=== PATIENT | female | born 1980 | race Caucasian/White ===

== ENCOUNTER → 2016-12-06 | Day surgery (SDC) | payer BC ==
[~2016-12-06] VITALS: Ht 175.3 cm; Wt 88.0 kg
[~2016-12-06] MED LIST: CALC8.5C PO; CETI10TA84 PO; CLC100 PO; CLR10 PO; FOLIC ACID IV SCH; FRRS300 PO; MULTI VITAMIN INFUSION IV SCH; NORETAB25 MT; ONDANSETRON INJ 2 MG/ML 2 ML VIAL IV PRN; ONDANSETRON INJ 2 MG/ML 2 ML VIAL ONE; PRENTAB26 PO; PYRI50TA77 PO; THIAMINE HCL IV SCH; [UNRECOGNIZED DRUG - OTHER] IV SCH
[2016-12-06 11:36] VITALS: BP 127/83; PULSE 94; TEMP 36.4; O2SAT 99; Ht 175.3 cm; Wt 88.0 kg
[2016-12-06 14:00] VITALS: BP 103/69; PULSE 79; TEMP 36.8; O2SAT 99
== END | disposition home or self-care (01) ==
LOC: C.MTU 11:30
PROVIDERS: ATTEND Obstetrics & Gynecology
DX: O21.0 Mild hyperemesis gravidarum (principal); Z79.899 Other long term (current) drug therapy

== ENCOUNTER 2017-08-05 12:45 | Emergency (ER) | payer BC, OTHER ==
[~2017-08-05] VITALS: Ht 175.3 cm; Wt 91.0 kg
[~2017-08-05 12:45] MED LIST changes: -CALC8.5C PO; -CETI10TA84 PO; -CLC100 PO; -FOLIC ACID IV SCH; -FRRS300 PO; -MULTI VITAMIN INFUSION IV SCH; -NORETAB25 MT; -ONDANSETRON INJ 2 MG/ML 2 ML VIAL IV PRN; -ONDANSETRON INJ 2 MG/ML 2 ML VIAL ONE; -PYRI50TA77 PO; -THIAMINE HCL IV SCH; -[UNRECOGNIZED DRUG - OTHER] IV SCH
[2017-08-05 12:53] VITALS: TEMP 37.2; Ht 175.3 cm; Wt 91.0 kg
[2017-08-05] MEDS ORDERED: MoRPHine SULFATE 10 MG/ML CARP/VIAL IV STA (13:06)
[2017-08-05] MEDS ORDERED: ONDANSETRON INJ 2 MG/ML 2 ML VIAL IV STA (13:06)
[2017-08-05] MEDS ORDERED: OPTIRAY 320 IV PRN (13:30)
[2017-08-05 13:33] LABS: BASO % 0.2 %; BASO ABS # 0.03 K/uL (0-0.2); EOS % 0.2 %; EOS ABS # 0.03 K/uL (0-0.5); HEMOGLOBIN 14.5 g/dL (12.0-16.0); IG# 0.04 K/uL (0.00-0.02); LYMPH % 12.5 %; LYMPH ABS # 1.67 K/uL (1.2-3.4); MEAN CELL VOLUME 86.2 fL (80-100); MEAN CORPUSCULAR HEMOGLOBIN 29.8 pg (25-34); MEAN CORPUSCULAR HGB CONC 34.5 g/dl (32-36); MEAN PLATELET VOLUME 9.3 fL (7.4-10.4); MONO % 9.1 %; MONO ABS # 1.21 K/uL (0.11-0.59); NEUT % 77.7 %; NEUT ABS # 10.39 K/uL (1.4-6.5); PLATELET COUNT 300 K/uL (130-400); RED CELL DISTRIBUTION WIDTH CV 13.2 % (11.5-14.5); RED CELL DISTRIBUTION WIDTH SD 41.8 fL (36.4-46.3); WHITE BLOOD COUNT 13.37 K/uL (4.8-10.8)
[2017-08-05 13:51] LABS: ALBUMIN 4.1 gm/dl (3.4-5.0); CALCIUM 9.4 mg/dl (8.5-10.1); CREATININE 1.15 mg/dl (0.60-1.20); POTASSIUM 3.9 mmol/L (3.5-5.1)
[2017-08-05 13:54] LABS: TOTAL PROTEIN 7.8 gm/dl (6.4-8.2)
[2017-08-05] MEDS ORDERED: IBUP-1050 PO (14:03)
[2017-08-05] MEDS ORDERED: BCPILLS PO (14:03)
[2017-08-05] MEDS ORDERED: ACET-1256 PO (14:03)
--- NOTE | 2017-08-05 16:19 | DIAGNOSTIC IMAGING REPORT ---
ABDOMEN AND PELVIS CT WITH IV AND ORAL CONTRAST CT DOSE: 912.69 mGycm HISTORY: Acute left lower quadrant abdominal pain left lower quadrant pain TECHNIQUE: Multiaxial CT images of the abdomen and pelvis were performed following the use of intravenous and oral contrast. A dose lowering technique was utilized adhering to the principles of ALARA. COMPARISON STUDY: None. FINDINGS: Minimal dependent subsegmental bibasilar atelectasis. There is no pneumatosis or pneumoperitoneum identified. Imaged inferior cardiac chambers are unremarkable. Spleen, liver, gallbladder, pancreas and adrenal glands are within normal limits. Left kidney is mildly edematous with mild left-sided perinephric inflammatory stranding. Delayed nephrogram on the left is present with moderate hydroureteronephrosis secondary to a 6 x 5 x 5 mm calculus of the distal left ureter just proximal to the left ureterovesicular junction. Multiple phleboliths of the pelvis. 2 mm nonobstructing calculus is seen within the inferior pole left kidney. Right kidney and right ureter are within normal limits. Uterus appears mildly heterogeneous. Probable follicular changes of the bilateral ovaries. Aorta is normal in course and caliber. No bulky adenopathy. Gastric diverticulum is noted, filled with contrast measuring up to 5.7 x 2.8 cm. No bowel obstruction or focal bowel wall thickening. There is nondistention involving the majority of the colon. Appendix appears normal. Diastases recti. Soft tissues are unremarkable. The bones appear intact. IMPRESSION: 1. Moderate left-sided hydroureteronephrosis with a delayed nephrogram secondary to a 6 x 5 x 5 mm calculus of the distal left ureter just proximal to the left ureterovesicular junction. Nonobstructing 2 mm calculus involves the inferior pole left kidney. 2. Normal appendix. 3. Moderate sized gastric diverticulum. Electronically signed by: Paulino Willoughby M.D. 08/05/2017 4:18 PM Dictated Date/Time: 08/05/2017 4:13 PM
[2017-08-05] MEDS ORDERED: ONDA4TAB10 SL (17:10)
[2017-08-05] MEDS ORDERED: TAMS0.4C38 PO (17:10)
[2017-08-05] MEDS ORDERED: OXYC1TAB3 PO (17:10)
--- NOTE | 2017-08-05 17:12 | EMERGENCY ROOM VISIT NOTE ---
History First contact with patient: 12:58 Chief Complaint: ABDOMINAL PAIN Stated Complaint: ABD PAIN Nursing Triage Summary: pt c/o severe abd pain, LLQ radiating into back since 0100. seen by PCP this morning, pt given Bentyl. no relief with otc or rx. some diarrhea with bright red blood. denies n/v. Pt gave in May History of Present Illness The patient is a 36 year old female who presents to the Emergency Room with complaints of left lower abdominal pain. The patient states the past 2 days she has had intermittent lower abdominal cramping and diarrhea which would last approximately 1 hour and then she will get better. This morning when she awoke at 1 AM she now has constant pain in the left lower quadrant which she rates at an 8 out of 10 and still has diarrhea. The patient does admit that there was some bright red blood in her stools but no she has hemorrhoids. She also states that she first went to her family doctor who performed a rectal exam on her this morning and stated that she had hemorrhoids and that her stool guaiac was negative. The patient denies any associated nausea or vomiting. The patient denies any fever or any urinary symptoms of hematuria, dysuria, urgency or frequency. The patient denies any history of kidney stones. The patient currently is not breast-feeding. Patient denies . Review of Systems 10 system review was performed and was negative unless stated otherwise history of present illness. Past Medical/Surgical History Medical Problems: (1) uterine contractions in third trimester, antepartum Surgical Problems: (1) History of tonsillectomy Family History Diabetes mellitus FH: Alzheimers disease FH: cancer Hypertension Social History Smoking Status: Never Smoker Alcohol Use: occasionally Drug Use: none Marital Status: Housing Status: lives with family Occupation Status: employed Current/Historical Medications Scheduled Acetaminophen (Tylenol), 1,000 MG PO UD Control Pills ( Control Pills), 1 TAB PO DAILY Ibuprofen (Advil), 200 MG PO UD Loratadine (Claritin), 10 MG PO DAILY Physical Exam Vital Signs Date Time Temp Pulse Resp B/P (MAP) Pulse Ox O2 Delivery O2 Flow Rate FiO2 08/05/17 15:50 78 18 131/84 99 Room Air 08/05/17 14:28 67 18 126/74 96 08/05/17 12:53 37.2 75 18 136/84 98 Room Air Physical Exam GENERAL: 36-year-old white female appears in no acute distress. MENTAL Status: Alert and oriented 3. MOUTH: Mucosa is moist NECK: Supple, no lymphadenopathy noted. No carotid bruits noted. LUNGS: Clear auscultation without wheezes rales or rhonchi. CARDIAC: Regular rate and rhythm without murmur. Pulses is full and equal throughout. BACK: No CVA tenderness noted. ABDOMEN: Positive bowel sounds all 4 quadrants. Soft, tenderness palpation in the left lower quadrant otherwise nontender to palpation without organomegaly or masses. RECTAL: Deferred per patient EXTREMITIES: No cyanosis or edema noted. Medical Decision & Procedures ER Provider Diagnostic Interpretation: ABDOMEN AND PELVIS CT WITH IV AND ORAL CONTRAST CT DOSE: 912.69 mGycm HISTORY: Acute left lower quadrant abdominal pain left lower quadrant pain TECHNIQUE: Multiaxial CT images of the abdomen and pelvis were performed following the use of intravenous and oral contrast. A dose lowering technique was utilized adhering to the principles of ALARA. COMPARISON STUDY: None. FINDINGS: Minimal dependent subsegmental bibasilar atelectasis. There is no pneumatosis or pneumoperitoneum identified. Imaged inferior cardiac chambers are unremarkable. Spleen, liver, gallbladder, pancreas and adrenal glands are within normal limits. Left kidney is mildly edematous with mild left-sided perinephric inflammatory stranding. Delayed nephrogram on the left is present with moderate hydroureteronephrosis secondary to a 6 x 5 x 5 mm calculus of the distal left ureter just proximal to the left ureterovesicular junction. Multiple phleboliths of the pelvis. 2 mm nonobstructing calculus is seen within the inferior pole left kidney. Right kidney and right ureter are within normal limits. Uterus appears mildly heterogeneous. Probable follicular changes of the bilateral ovaries. Aorta is normal in course and caliber. No bulky adenopathy. Gastric diverticulum is noted, filled with contrast measuring up to 5.7 x 2.8 cm. No bowel obstruction or focal bowel wall thickening. There is nondistention involving the majority of the colon. Appendix appears normal. Diastases recti. Soft tissues are unremarkable. The bones appear intact. IMPRESSION: 1. Moderate left-sided hydroureteronephrosis with a delayed nephrogram secondary to a 6 x 5 x 5 mm calculus of the distal left ureter just proximal to the left ureterovesicular junction. Nonobstructing 2 mm calculus involves the inferior pole left kidney. 2. Normal appendix. 3. Moderate sized gastric diverticulum. Electronically signed by: Paulino Willoughby M.D. 08/05/2017 4:18 PM Dictated Date/Time: 08/05/2017 4:13 PM Laboratory Results 08/05/17 13:16 Red Blood Count 4.87, Mean Corpuscular Volume 86.2, Mean Corpuscular Hemoglobin 29.8, Mean Corpuscular Hemoglobin Concent 34.5, Mean Platelet Volume 9.3, Neutrophils (%) (Auto) 77.7, Lymphocytes (%) (Auto) 12.5, Monocytes (%) (Auto) 9.1, Eosinophils (%) (Auto) 0.2, Basophils (%) (Auto) 0.2, Neutrophils # (Auto) 10.39, Lymphocytes # (Auto) 1.67, Monocytes # (Auto) 1.21, Eosinophils # (Auto) 0.03, Basophils # (Auto) 0.03 08/05/17 13:16 Test 08/05/17 13:16 White Blood Count 13.37 K/uL (4.8-10.8) Red Blood Count 4.87 M/uL (4.2-5.4) Hemoglobin 14.5 g/dL (12.0-16.0) Hematocrit 42.0 % (37-47) Mean Corpuscular Volume 86.2 fL (80-100) Mean Corpuscular Hemoglobin 29.8 pg (25-34) Mean Corpuscular Hemoglobin Concent 34.5 g/dl (32-36) Platelet Count 300 K/uL (130-400) Mean Platelet Volume 9.3 fL (7.4-10.4) Neutrophils (%) (Auto) 77.7 % Lymphocytes (%) (Auto) 12.5 % Monocytes (%) (Auto) 9.1 % Eosinophils (%) (Auto) 0.2 % Basophils (%) (Auto) 0.2 % Neutrophils # (Auto) 10.39 K/uL (1.4-6.5) Lymphocytes # (Auto) 1.67 K/uL (1.2-3.4) Monocytes # (Auto) 1.21 K/uL (0.11-0.59) Eosinophils # (Auto) 0.03 K/uL (0-0.5) Basophils # (Auto) 0.03 K/uL (0-0.2) RDW Standard Deviation 41.8 fL (36.4-46.3) RDW Coefficient of Variation 13.2 % (11.5-14.5) Immature Granulocyte % (Auto) 0.3 % Immature Granulocyte # (Auto) 0.04 K/uL (0.00-0.02) Urine Color YELLOW Urine Appearance CLOUDY (CLEAR) Urine pH 5.0 (4.5-7.5) Urine Specific [place] 1.019 (1.000-1.030) Urine Protein NEG (NEG) Urine Glucose (UA) NEG (NEG) Urine Ketones NEG (NEG) Urine Occult Blood 2+ (NEG) Urine Nitrite NEG (NEG) Urine Bilirubin NEG (NEG) Urine Urobilinogen NEG (NEG) Urine Leukocyte Esterase LARGE (NEG) Urine WBC (Auto) >30 /hpf (0-5) Urine RBC (Auto) >30 /hpf (0-4) Urine Hyaline Casts (Auto) 5-10 /lpf (0-5) Urine Epithelial Cells (Auto) >30 /lpf (0-5) Urine Bacteria (Auto) NEG (NEG) Anion Gap 10.0 mmol/L (3-11) Est Creatinine Clear Calc Drug Dose 82.9 ml/min Estimated GFR () 71.9 Estimated GFR (Non- 62.0 BUN/Creatinine Ratio 16.1 (10-20) Calcium Level 9.4 mg/dl (8.5-10.1) Total Bilirubin 1.3 mg/dl (0.2-1) Direct Bilirubin 0.2 mg/dl (0-0.2) Aspartate Amino Transf (AST/SGOT) 28 U/L (15-37) Alanine Aminotransferase (ALT/SGPT) 79 U/L (12-78) Alkaline Phosphatase 96 U/L (45-117) Total Protein 7.8 gm/dl (6.4-8.2) Albumin 4.1 gm/dl (3.4-5.0) Lipase 152 U/L (73-393) Medications Administered Medications (Trade) Dose Ordered Sig/Olu Route Start Time Stop Time Status Last Admin Dose Admin Ondansetron HCl (Zofran Inj) 4 mg NOW STAT IV 08/05/17 13:06 08/05/17 13:09 DC 08/05/17 13:24 4 MG Morphine Sulfate (MoRPHine SULFATE INJ) 6 mg NOW STAT IV 08/05/17 13:06 08/05/17 13:09 DC 08/05/17 13:26 6 MG ED Course The patient was evaluated. The patient's EMR medication list were reviewed. IV access was obtained. CBC and differential, renal profile, LFTs and lipase levels were ordered. Urinalysis was ordered. The patient was given morphine 6 mg IV and Zofran 4 mg IV push for associated nausea. Labs are reviewed. White count was elevated at 13,000 otherwise labs are unremarkable. Urinalysis revealed positive blood positive leukocytes but no bacteria. CT of the abdomen and pelvis with IV and oral contrast was ordered and interpreted by the radiologist as above with 6X 5 x 5 calculus just proximal to the right UV junction. There is also another 2 mm nonobstructing stone in the right renal pelvis. There is hydronephrosis noted. The patient was informed of the findings. The patient currently rated her pain at a 5 out of 10. She stated she was comfortable. The urologist, Dr. Chowdary was consulted. Since the patient's pain was controlled Dr. Chowdary felt that the patient could go home. She gave me specific instructions for the patient. She also will tentatively put the patient on the [facility] OR schedule for Saturday. They will be calling the patient with appointment time. The patient was informed of treatment plan and was in agreement. The patient was discharged home in stable condition. Medical Decision Differential diagnoses include reflux, gastritis, gastroenteritis, pancreatitis , cholelithiasis, cholecystitis, appendicitis, mesenteric ischemia, pyelonephritis, urinary tract infection, renal colic, diverticulitis, shingles, bowel obstruction, intussusception, hernia, ovarian torsion, ruptured ovarian cyst, ectopic , . [place] Drug Monitoring Program Search Results: patient reviewed within database Medication Reconcilliation Current Medication List: was personally reviewed by me Blood Pressure Screening Patient's blood pressure: Normal blood pressure Impression Primary Impression: Left ureteral calculus Departure Information Dispostion Home / Self-Care Condition GOOD Prescriptions Oxycodone Immediate Rel Tab (ROXICODONE IR) 5 Mg Tab 1-2 TAB PO Q4H Y for Pain, #30 TAB Prov: Lainey Partida, BITA 08/05/17 Tamsulosin Hcl (FLOMAX) 0.4 Mg Cap 0.4 MG PO DAILY for 7 Days, #7 CAP Prov: Lainey Partida PA-C 08/05/17 Ondasetron Odt (ZOFRAN ODT) 4 Mg Tab 4 MG SL Q6H for Nausea, #10 TAB Prov: Lainey Partida PA-C 08/05/17 Referrals Roman Eaton M.D. (PCP) Miesha Chowdary MD Forms Call Back Authorization, HOME CARE DOCUMENTATION FORM, IMPORTANT VISIT INFORMATION Patient Instructions Kidney Stones - [facility], [facility] Additional Instructions Drink a lot of water. Ibuprofen 600 mg every 6 hours with food for pain. Take OxyIR as needed for more severe pain. Do not drive while taking the OxyIR. Take Flomax daily as directed. Strain all urine. Take Zofran as needed for nausea. If you experience any high fevers, uncontrolled pain call Dr. Chowdary [phone]. If it is after hours come to the emergency room. Dr. Chowdary office will be calling you tomorrow with a tentative appointment for Saturday.
[2017-08-05 17:18] VITALS: BP 120/74; PULSE 78; O2SAT 96
== END 2017-08-05 17:18 | disposition home or self-care (01) ==
LOC: C.EDB 12:46
DX: N20.1 Calculus of ureter (principal); Z83.3 Family history of diabetes mellitus; Z80.9 Family history of malignant neoplasm, unspecified; Z82.49 Family history of ischemic heart disease and other diseases of the circulatory system; Z79.3 Long term (current) use of hormonal contraceptives; Z79.899 Other long term (current) drug therapy